=== PATIENT | female | born 1960 | race Caucasian/White ===

== ENCOUNTER → 2016-11-18 | Outpatient (CLI) | payer OTHER ==
[~2016-11-18] MED LIST: BACTRIM DS TABL1 TA1 PO; BLACK COHOSH; BUPROPION XL300 MG PO; CENTRUM COMPLE1 EACH PO; DYAZIDE 37.5/251 CAP PO; IRON325 MG; MOBIC PO; MOBIC15 MG PO; MUCINEX DM1 TAB.SR . PO; NEXIUM 24HR20 M1; PHENERGAN25 MG PO; PRILOSEC PO; TRIAMTERENE-HCT1 TA7 PO; WELLBUTRIN PO; ZESTORETIC 10-1 EAC1
--- NOTE | ~2016-11-18 | ST ---
Unit #: [id number] #: [id number] Patient: STEFANO LAGUNAS [id number] [address] [address] [id number] O MR#: [id number] NAME: STEFANO LAGUNAS. : 1960 SEX: F STUDY DATE/TIME: 11/18/2016 UNIT: [facility] ROOM: STUDY DESCRIPTION: Stress nuclear and ECG comb. Attending Physician: Raymond Phoenix M.D. Referring Physician: Raymond Phoenix M.D. Primary Care Physician: Raymond Phoenxi M.D. CARDIOLOGY REPORT EXAM Stress nuclear and ECG combined. INDICATION Pre-exercise clearance, with chest tightness on treadmill previously. History of hypertension and family history of coronary disease. SUMMARY Patient exercised under Reyes protocol to a maximal effort, 6 minutes and 18 seconds total. Technetium 99 Cardiolite 10.02 and 33.0 mCi was injected at rest and stress respectively. Appropriate views were obtained. FINDINGS Heart rate increased from 81 to 169 (103%), and blood pressure increased 165/91 to 220/100. Patient's exercise test was stopped because of hypertension. The resting ECG was abnormal with 0.[address] depression in lead 3, and V5. With stress there were no diagnostic ST shifts, but there was considerable baseline artifact during stress. Immediately post exercise there were no diagnostic ST shifts. There were no significant dysrhythmias. Perfusion images demonstrate chest wall attenuation artifact, and intestinal artifact both at rest and stress, slightly more intense during rest and at stress. Gated perfusion wall motion analysis demonstrates normal LV size, 72 mL, ejection fraction 65%, with no wall motion abnormalities. Plantar imaging demonstrates no significant patient motion either at rest or stress. There is no significant lung uptake, LV or RV enlargement. Summed stress scores is 0. IMPRESSION 1. Myocardial perfusion scan is normal. Shows no ischemia or infarction. 2. Normal wall motion with excellent ejection fraction. 3. Hypertension at rest, very significant, with hypertensive response to exercise necessitating discontinuation of exercise. 4. Normal exercise stress ECG. Dictated by... Neno Jones M.D. Unit #: [id number] #: [id number] Patient: STEFANO LAGUNAS PJR/ts TD: 11/19/2016 13:55 JOB #: [id number] CARDIOLOGY REPORT Page 1 of 1 X Neno Jones MD CARDIOLOGY REPORT
== END | disposition home or self-care (01) ==
LOC: CNUC 08:25
DX: R07.9 Chest pain, unspecified (principal)
CPT/HCPCS: 78452; 93017; A9500

== ENCOUNTER → 2016-12-09 | Day surgery (SDC) | payer OTHER ==
--- NOTE | ~2016-12-09 | OR ---
Unit #: [id number] #: [id number] Patient: STEFANO LAGUNAS [id number] [address] [place], [place] [address] [id number] O MR#: [id number] NAME: STEFANO LAGUNAS. ROOM: Date of Procedure: 12/09/2016 Admission Date: 12/09/2016 Surgeon: Paul Recinos M.D. : 1960 Attending Physician: Paul Recinos M.D. Primary Care Physician: Raymond Phoenix M.D. OPERATIVE REPORT PRIMARY CARE PHYSICIAN Raymond Phoenix M.D. PREOPERATIVE DIAGNOSES The patient has presented for colon cancer screening. She had last examination more than 20 years ago. In addition, she has family history of colon cancer in her father and personal history of colon polyps removed more than 20 years ago. Lastly, she also has some right lower quadrant abdominal pain. PROCEDURE PERFORMED Colonoscopy up to cecum and terminal ileum with excellent preparation and good visualization. POSTOPERATIVE DIAGNOSES The patient had moderate pandiverticulosis, otherwise examination was normal up to cecum and terminal ileum. The quality of the prep was excellent. RECOMMENDATIONS Repeat colonoscopy in 5 years. SEDATION USED MAC. DESCRIPTION OF PROCEDURE Following detailed explanation of the potential risks and complications of a colonoscopy, namely perforation, bleeding, and complications related to sedation, the patient was brought to GI lab and laid in the left lateral decubitus position. A digital rectal examination was performed, which was normal. Lubricated tip of the Olympus video colonoscope was inserted through the anus and advanced under direct vision. The scope was advanced and passed up to sigmoid into descending colon. Multiple medium-sized diverticula were seen in this area. The scope tip was then navigated all the way up to cecum with visualization of the ileocecal valve and the appendiceal orifice. Preparation was excellent with good visualization and photodocumentation was obtained. Last few inches of the terminal ileum also visualized after intubation of the ileocecal valve and appeared normal. Successive segments of the colonic mucosa were examined upon withdrawal and appeared unremarkable. There being no polyps, mass lesions, or angiodysplasias. The patient had moderate pandiverticulosis. The patient did not have any internal hemorrhoids at anal verge. The Unit #: [id number] #: [id number] Patient: STEFANO LAGUNAS scope was then withdrawn. The patient returned to the recovery area. She tolerated the procedure without any postprocedure complications. Dictated by... David Winston TD: 12/09/2016 17:03 JOB #: [id number] OPERATIVE REPORT Page 1 of 1 X Paul Recinos MD PROCEDURE OPERATIVE NOTE
== END | disposition home or self-care (01) ==
LOC: COPS 12:53
DX: K57.30 Diverticulosis of large intestine without perforation or abscess without bleeding (principal); K21.9 Gastro-esophageal reflux disease without esophagitis; I10 Essential (primary) hypertension; Z86.010 Personal history of colon polyps; Z80.0 Family history of malignant neoplasm of digestive organs; Z79.899 Other long term (current) drug therapy; Z79.1 Long term (current) use of non-steroidal anti-inflammatories (NSAID); Z90.49 Acquired absence of other specified parts of digestive tract; Z98.890 Other specified postprocedural states
CPT/HCPCS: J2250